=== PATIENT | male | born 1960 | race Caucasian/White ===

== ENCOUNTER 2020-09-23 08:36 | Emergency (ER) | payer OTHER ==
[2020-09-23] MEDS: Ketorolac 60 MG/2 ML SDV ONE (09:14)
[2020-09-23] MEDS: methylPREDNISolone Sodium Succinate 125 MG/2 ML SDV ONE (09:18)
[2020-09-23] MEDS: Ketorolac 60 MG/2 ML SDV IM ONE (09:25)
[2020-09-23] MEDS: methylPREDNISolone Sodium Succinate 125 MG/2 ML SDV IM ONE (09:26)
--- NOTE | 2020-09-23 09:32 | EDM.PDOC ---
ED HPI GENERAL MEDICAL PROBLEM - General Chief Complaint: Upper Extremity Injury/Pain Stated Complaint: LEFT WRIST PAIN Time Seen by Provider: 09/23/20 09:00 Source of Information: Reports: Patient History Limitations: Reports: No Limitations - History of Present Illness INITIAL COMMENTS - FREE TEXT/NARRATIVE: left wrist pain for 2 days.. reports that he was cutting his garden week a couple days ago and he thinks he over did it. h/o problems with the same joint several years ago - used to work in construction. no fever or chills. took a couple Aleve, but minimal relief of pain Left Wrist Pain Score (Numeric/FACES): 8 - Related Data Allergies Allergy/AdvReac Type Severity Reaction Status Date / Time No Known Allergies Allergy Verified 09/23/20 09:15 Home Meds: Home Meds Amoxicillin 500 mg PO BID #14 capsule 09/23/20 [Rx] Ketorolac [Toradol] 10 mg PO TID PRN #6 tab 09/23/20 [Rx] lisinopriL [Lisinopril] 10 mg PO DAILY 09/23/20 [History] methylPREDNISolone [Medrol Dose Pack] 84 mg PO DAILY #1 dospk 09/23/20 [Rx] Past Medical History Cardiovascular History: Reports: Hypertension - Past Surgical History Musculoskeletal Surgical History: Reports: Shoulder Surgery, Other (See Below) Other Musculoskeletal Surgeries/Procedures:: hip surgery Social & Family History - Recreational Drug Use Recreational Drug Use: No Review of Systems - Review of Systems Review Of Systems: See Below Constitutional: Reports: No Symptoms Mouth/Throat: Reports: No Symptoms Respiratory: Reports: No Symptoms Cardiovascular: Reports: No Symptoms Skin: Reports: No Symptoms Neurological: Reports: No Symptoms ED EXAM, GENERAL - Physical Exam Exam: See Below Exam Limited By: No Limitations General Appearance: Alert, WD/WN, No Apparent Distress Eye Exam: Bilateral Eye: EOMI Respiratory/Chest: No Respiratory Distress, Lungs Clear Cardiovascular: Normal Peripheral Pulses, Regular Rate, Rhythm Extremities: Other (left wrist swelling. no TTP, but discomfort to movement) Neurological: Alert, Oriented, No Motor/Sensory Deficits Course - Vital Signs Last Recorded V/S: Last Vital Signs Temp 36.6 C 09/23/20 08:47 Pulse 95 09/23/20 08:47 Resp 16 09/23/20 08:47 BP 160/96 H 09/23/20 08:47 Pulse Ox 96 09/23/20 08:47 - Orders/Labs/Meds Orders: Active Orders 24 hr Category Date Time Status Wrist Comp Min 3V Lt [CR] Stat Exams 09/23/20 08:57 Taken Meds: Medications Discontinued Medications Generic Name Dose Route Start Last Admin Trade Name Freq PRN Reason Stop Dose Admin Ketorolac Tromethamine Confirm 09/23/20 09:21 09/23/20 09:14 Ketorolac 60 Mg/2 Ml Sdv Administered 09/23/20 09:22 Not Given Dose 60 mg .ROUTE .STK-MED ONE Ketorolac Tromethamine 60 mg 09/23/20 09:23 09/23/20 09:25 Ketorolac 60 Mg/2 Ml Sdv IM 09/23/20 09:24 60 mg ONETIME ONE Administration Methylprednisolone Sodium Succinate Confirm 09/23/20 09:23 09/23/20 09:18 Methylprednisolone Sodium Succinate 125 Mg/2 Ml Sdv Administered 09/23/20 09:24 Not Given Dose 125 mg .ROUTE .STK-MED ONE Methylprednisolone Sodium Succinate 125 mg 09/23/20 09:23 Methylprednisolone Sodium Succinate 125 Mg/2 Ml Sdv IM 09/23/20 09:24 ONETIME ONE - Re-Assessments/Exams Free Text/Narrative Re-Assessment/Exam: xrays - no fractures but possible e/o chronic arthritis and DJD. IM Toradol and IM solumedrol were given referral to ortho Departure - Departure Time of Disposition: 09:30 Disposition: Home, Self-Care 01 Condition: Good Clinical Impression: Arthritis of left wrist - Discharge Information *PRESCRIPTION DRUG MONITORING PROGRAM REVIEWED*: Not Applicable *COPY OF PRESCRIPTION DRUG MONITORING REPORT IN PATIENT MARLO: Not Applicable Prescriptions: methylPREDNISolone [Medrol Dose Pack] 84 mg PO DAILY #1 dospk Ketorolac [Toradol] 10 mg PO TID PRN #6 tab PRN Reason: Pain (Moderate 4-6) Instructions: Wrist Sprain, Adult Referrals: PCP,None [Primary Care Provider] - Forms: ED Department Discharge Additional Instructions: - recommend to follow up with an orthopedic surgeon in 2-4 weeks - keep splint on for at least 1-2 weeks - take new pain meds as prescribed Sepsis Event Note (ED) - Evaluation Sepsis Screening Result: No Definite Risk - Focused Exam Vital Signs: Vital Signs Temp Pulse Resp BP Pulse Ox 09/23/20 08:47 36.6 C 95 16 160/96 H 96 - Problem List & Annotations (1) Arthritis of left wrist SNOMED Code(s): 0990387032176338 Code(s): M19.032 - PRIMARY OSTEOARTHRITIS, LEFT WRIST Status: Acute Priority: Low Current Visit: Yes - Problem List Review Problem List Initiated/Reviewed/Updated: Yes - My Orders Last 24 Hours: My Active Orders 09/23/20 08:57 Wrist Comp Min 3V Lt [CR] Stat - Assessment/Plan Last 24 Hours: My Active Orders 09/23/20 08:57 Wrist Comp Min 3V Lt [CR] Stat Plan: - recommend to follow up with an orthopedic surgeon in 2-4 weeks - keep splint on for at least 1-2 weeks - take new pain meds as prescribed
--- NOTE | 2020-09-23 09:59 | CR ---
Date of Service: 09/23/20 Clinical Data: wrist injury LEFT WRIST: No priors. There are osteoarthritic changes involving multiple joints with multiple subchondral cysts. There is mild negative ulnar variance. No acute fracture or dislocation. No lytic or blastic bone lesions. [id number] [facility]
== END 2020-09-23 09:35 | disposition home or self-care (01) ==
LOC: LB.ED 08:36
DX: M19.032 Primary osteoarthritis, left wrist (principal); I10 Essential (primary) hypertension; Z79.899 Other long term (current) drug therapy
CPT/HCPCS: 73110-LT; 96372; 99283; 99283-25; J1885; J2930